=== PATIENT | female | born 1935 | race Caucasian/White ===

== ENCOUNTER 2018-04-10 12:15 | Outpatient (CLI) | payer MEDICARE | END 2018-04-10 12:16 | disposition home or self-care (01) | LOC: BICMRI 12:15 | PROVIDERS: ATTEND Family Medicine | DX: M51.16 Intervertebral disc disorders with radiculopathy, lumbar region (principal); M51.17 Intervertebral disc disorders with radiculopathy, lumbosacral region; M51.15 Intervertebral disc disorders with radiculopathy, thoracolumbar region; M48.061 Spinal stenosis, lumbar region without neurogenic claudication; M99.83 Other biomechanical lesions of lumbar region; M99.84 Other biomechanical lesions of sacral region | CPT/HCPCS: 72148 ==

== ENCOUNTER 2019-08-16 14:33 | Inpatient (IN) | payer MEDICARE ==
[~2019-08-16 14:33] MED LIST: Iopamidol-370 76% 500 ML 1 ML ONE
[2019-08-16 16:00] LABS: #Lymphocytes 1.7 thou/uL (1.20-3.40); #Monocytes 0.5 thou/uL (0.11-0.59); #Neutrophils 5.5 thou/uL (1.40-6.50); %Basophils 0.4 % (0.0-1.0); %Eosinophils 0.4 % (0.0-10.0); %Monocytes 6.7 % (0.0-10.0); %Neutrophils 70.6 % (42.0-75.0); Hemoglobin 13.2 g/dL (12.0-16.0); Mean Corpuscular HGB CONC 32.7 g/dL (32.0-36.0); Mean Corpuscular Hemoglobin 28.6 pg (27.0-31.0); Mean Corpuscular Volume 87.3 fL (78.0-98.0); Mean Platelet Volume 7.6 fL (7.4-10.4); Platelet Count 329 thou/uL (130-400); RBC Distribution Width 12.5 % (11.5-14.5); Red Blood Cell (RBC) Count 4.62 mill/uL (4.20-5.40); White Blood Cell (WBC) Count 7.8 thou/uL (4.8-10.8)
[2019-08-16 16:12] LABS: Bacteria/HPF 2+ HPF (None Seen); Bilirubin Negative (Negative); Blood, Urine Negative (Negative); Clarity Turbid (Clear); Glucose, Urine (Dipstick) Normal (Negative); Leukocyte 500 Leu/uL (Negative); Nitrite Negative (Negative); Protein, Urine (Dipstick) Negative (Neg-Trace); Urobilinogen Normal mg/dL (Less than 2); WBC/HPF 21-50 HPF (0-3); Yeast-Budding 1+ HPF (None Seen)
[2019-08-16 16:23] LABS: ALT (SGPT) 18 U/L (8-55); AST (SGOT) 26 U/L (5-34); Albumin 3.7 g/dL (3.4-4.8); Alkaline Phosphatase 105 U/L (40-110); Anion Gap 16 mmol/L (10-20); BUN (Urea Nitrogen) 13 mg/dL (9.8-20.1); Bilirubin, Total 0.6 mg/dL (0.2-1.2); Calc. Creatinine Clearance 0 mL/min (70-130); Calcium 9.3 mg/dL (7.8-10.44); Carbon Dioxide 15 mmol/L (23-31); Chloride 101 mmol/L (98-107); Estimated GFR-MDRD 66; Globulin 3.6 g/dL (2.4-3.5); Glucose 98 mg/dL (83-110); Magnesium 1.9 mg/dL (1.6-2.6); Potassium 4.2 mmol/L (3.5-5.1); Protein, Total 7.3 g/dL (6.0-8.3); Sodium 128 mmol/L (136-145)
[2019-08-16] MEDS ORDERED: Labetalol HCl 100 MG/20 ML VIAL ONE (16:49)
[2019-08-16] MEDS ORDERED: Meclizine HCl 25 MG TAB ONE (16:49)
--- NOTE | 2019-08-16 16:54 | CT ---
CT BRAIN NONCONTRAST: DATE: 08/16/2019 HISTORY: 84-year-old female with altered mental status, confusion, lightheadedness, and vertigo. FINDINGS: There is no evidence of acute intra-axial or extra-axial hemorrhage. There is no midline shift or any other mass effect. There is no extra-axial fluid collection. There is no evidence of obstructive hydrocephalus. Calvarium is intact. There is diffuse brain parenchymal volume loss. There are low att enuation areas in the white matter. These are nonspecific, but in a patient of this age, they are probably chronic ischemic white matter changes due to microvascular atherosclerosis. Tiny old lacunar infarctions in caudate nuclei and basal ganglia bilaterally. IMPRESSION: 1) No acute intracranial findings. 2) involutional changes and chronic ischemic white matter changes. 3) several tiny old lacunar infarctions in bilateral corpus striatum.
--- NOTE | 2019-08-16 17:02 | CT ---
CT ANGIOGRAM THORAX WITH CONTRAST: (CTA pulmonary angiogram) DATE: 08/16/2019 HISTORY: 84-year-old female with near syncope. TECHNIQUE: IV injection of iodinated contrast. Scan acquisition timing attempted to coincide with iodinated contrast bolus reaching maximal density in pulmonary arteries. 3-D MIP reconstructions. FINDINGS: Pulmonary thromboembolism: None. Lungs: No consolidation or edema. Pneumothorax: None. Pleural effusion: None. heart: No cardiomegaly. Thoracic aorta: No aneurysm. Not enough IV contrast to evaluate for dissection. Mediastinum and julio: No lymphadenopathy. IMPRESSION: No pulmonary thromboembolism.
[2019-08-16] MEDS ORDERED: Acetaminophen 325 MG TAB PO PRN (17:22)
--- NOTE | 2019-08-16 17:45 | RAD ---
EXAM: Portable chest PROVIDED CLINICAL HISTORY: Chest pain COMPARISON: None FINDINGS: Cardiac and mediastinal silhouette is within normal limits. No focal consolidation, pleural fluid or pneumothorax evident. IMPRESSION: No evidence for an acute cardiopulmonary process.
[2019-08-16] MEDS ORDERED: Aspirin 325 MG TAB PO SCH (18:15)
--- NOTE | 2019-08-16 18:36 | PDOC.EVN ---
Event Note - Event Note Event Note: [id number] HP
[2019-08-16 21:13] VITALS: BMI 27.3
--- NOTE | 2019-08-16 21:30 | HP ---
CHIEF COMPLAINT: Dizziness and weakness. HISTORY OF PRESENT ILLNESS: Ms. Herzog is an 84-year-old female with past medical history of CVA, presented to the emergency room with dizziness, lightheadedness, and weakness. Symptoms started yesterday. It got worse today. The patient also reports confusion. She felt that the room was spinning. Denies nausea, vomiting, or diarrhea. Workup in the emergency room including CT of the brain, no acute finding. CT of the chest, no acute finding. The patient was found to be hyponatremic with a sodium of 128. The patient also was found to have urinary tract infection. The patient is being admitted to hospital for further management. PAST MEDICAL HISTORY: 1. CVA. 2. Hypertension. 3. Hyperlipidemia. 4. Colon cancer. PAST SURGICAL HISTORY: 1. Resection of colon cancer. 2. Colostomy. 3. Reversal of colostomy. SOCIAL HISTORY: Denies smoking, alcohol drinking, or drug abuse. FAMILY HISTORY: Reviewed and noncontributory. HOME MEDICATIONS: Please see home medication reconciliation form for updated medications. ALLERGIES: ALLERGIC TO PENICILLIN. REVIEW OF SYSTEMS: Review of 14 systems negative except what is mentioned in the history of present illness. PHYSICAL EXAMINATION: GENERAL: The patient is awake, alert, does not appear to be in acute distress. VITAL SIGNS: Blood pressure initially was 211/78. Latest blood pressure is 169/93. The patient was given 20 mg of IV labetalol in the ED. Pulse is 77, respiratory rate is 22, and temperature 98.1. HEAD AND NECK: Normocephalic, atraumatic. Neck is supple. No JVD. CHEST: Fair bilateral air entry. HEART: S1 and S2, regular. ABDOMEN: Soft, nontender. Bowel sounds present. NEUROLOGIC: Awake, alert, and oriented x3. Moving all extremities. PSYCHIATRIC: Unable to assess. EXTREMITIES: No clubbing, no cyanosis. MUSCULOSKELETAL: No back tenderness. No joint tenderness. GENITOURINARY: No suprapubic tenderness. No flank tenderness. IMAGING DATA: CTA of the chest, no pulmonary thromboembolism. CT of the brain, no acute intracranial findings, several tiny old lacunar infarctions in bilateral corpus striatum. LABORATORY DATA: Sodium is 128. Urine culture is positive for wbc's and bacteria. ASSESSMENT: 1. Dizziness and lightheadedness. 2. Hyponatremia. 3. Hypertensive urgency. 4. Acute urinary tract infection. 5. Hyperlipidemia. 6. History of colon cancer. PLAN: 1. Admit. 2. Telemetry monitoring. 3. Aspirin. 4. Frequent neuro checks. 5. MRI of the brain. 6. Consult Neurology in a.m. for evaluation and further recommendations. 7. IV fluids with normal saline. 8. Monitor electrolytes and sodium. 9. Septic workup including urine cultures. 10. IV ceftriaxone, awaiting culture results. 11. Reconcile home medications. 12. DVT prophylaxis as appropriate. 13. Expected length of stay, 2 midnights or more. Job ID: [id number]
[2019-08-16] MEDS: Sodium Chloride 0.9% 1,000 ML IV SCH (21:59)
[2019-08-16] MEDS: cefTRIAXone\\ROCEPHIN 1 GM in Sodium Chloride 0.9% 100 ML IVPB SCH (22:05)
[2019-08-16] MEDS: Heparin 5,000 UNITS/ML VIAL SC SCH (22:11)
[2019-08-16] MEDS: Famotidine 20 MG TAB PO SCH (22:11)
[2019-08-16] MEDS ORDERED: hydrALAZINE 20 MG/ML VIAL SLOW IVP PRN (22:49)
[2019-08-16] MEDS ORDERED: Lisinopril 20 MG TAB PO SCH (23:00)
[2019-08-17 05:10] LABS: #Eosinphils 0.1 thou/uL (0.0-0.7); #Lymphocytes 2.1 thou/uL (1.20-3.40); #Monocytes 0.6 thou/uL (0.11-0.59); #Neutrophils 4.4 thou/uL (1.40-6.50); %Basophils 0.4 % (0.0-1.0); %Eosinophils 0.9 % (0.0-10.0); %Lymphocytes 29.1 % (21.0-51.0); %Monocytes 8.7 % (0.0-10.0); %Neutrophils 60.9 % (42.0-75.0); Hemoglobin 11.6 g/dL (12.0-16.0); Mean Corpuscular HGB CONC 33.3 g/dL (32.0-36.0); Mean Corpuscular Hemoglobin 29.5 pg (27.0-31.0); Mean Corpuscular Volume 88.4 fL (78.0-98.0); Mean Platelet Volume 7.3 fL (7.4-10.4); Platelet Count 294 thou/uL (130-400); RBC Distribution Width 12.6 % (11.5-14.5); Red Blood Cell (RBC) Count 3.93 mill/uL (4.20-5.40); White Blood Cell (WBC) Count 7.2 thou/uL (4.8-10.8)
[2019-08-17 05:22] LABS: Anion Gap 13 mmol/L (10-20); BUN (Urea Nitrogen) 10 mg/dL (9.8-20.1); Calc. Creatinine Clearance 50 mL/min (70-130); Calcium 8.8 mg/dL (7.8-10.44); Carbon Dioxide 20 mmol/L (23-31); Cardiac Risk 3.2 (Less than 4.5); Chloride 106 mmol/L (98-107); Cholesterol 121 mg/dl (< 200 Desired); Estimated GFR-MDRD 66; Glucose 91 mg/dL (83-110); HDL Cholesterol 38 mg/dL (>60 Neg Risk); LDL Cholesterol, Calculated 65 mg/dL; Potassium 3.7 mmol/L (3.5-5.1); Sodium 135 mmol/L (136-145); Triglycerides 88 mg/dL (Less than 150)
[2019-08-17] MEDS: Sodium Chloride 0.9% 1,000 ML IV SCH ×2 (08:15→13:34)
[2019-08-17] MEDS ORDERED: Prevnar 13-Val Conj/PF 0.5 ML SYRINGE IM ONE (09:00)
--- NOTE | 2019-08-17 09:26 | CON ---
DATE OF CONSULTATION: 08/17/2019 CONSULTING PHYSICIAN: Hospitalist Service. IMPRESSION: 1. Acute vertigo that apparently is a recurrent problem. 2. Reported history of a frontal stroke diagnosed 2 weeks ago. 3. Hypertension. 4. Hyperlipidemia. 5. Colon cancer. PLAN: MRI of the brain to determine whether this was an ischemic event versus an inner ear event. HISTORY OF PRESENT ILLNESS: Ms. Herzog is an 84-year-old white female, who reports having episodic vertigo for quite some time now. She was hospitalized at [facility] 2 weeks ago for a stroke workup. She reports that there was evidence of an acute ischemic event in the frontal region, which the accuracy of this information is suspect. She was hospitalized for about 4 days and discharged. She had a recurrent dizziness yesterday. She reports the world was spinning and it was not associated with any double vision, headache, nausea, vomiting, lateralized weakness or numbness. She decided to come back to the hospital for evaluation. She had a CT of the brain last night, which showed chronic white matter ischemic changes. She is feeling better today. She reports the symptoms lasted at least an hour. PAST MEDICAL HISTORY: As listed above. ALLERGIES: PENICILLIN. SOCIAL HISTORY: No tobacco or alcohol use. FAMILY HISTORY: Noncontributory. REVIEW OF SYSTEMS: Ten-system review of systems is otherwise negative. PHYSICAL EXAMINATION: GENERAL: She is a healthy-appearing elderly lady, sitting up in bed, in no acute distress. VITAL SIGNS: Initially showed a blood pressure of 211/78, which diminished somewhat with monitoring, pulse rate of 77, and respirations of 22. She is afebrile. HEENT: Pupils are equal and reactive. Conjunctivae are clear. Oropharynx clear. NECK: Supple. EXTREMITIES: No cyanosis or edema. NEUROLOGIC: She is alert and appropriate. Her speech is fluent and clear. Cranial nerves are intact. Motor exam showed equal strength. She could sit at the bedside without difficulty. Sensation was intact bilaterally. LABORATORY STUDIES: Only notable for probable urinary tract infection. SUMMARY: This is an 84-year-old woman, who reports episodic dizziness, which has been a recurrent problem on several occasions. She has nothing focal on exam. I suspect this is more likely to be vestibular in origin. We will review her MRI scan when it is available. Job ID: [id number]
--- NOTE | 2019-08-17 10:33 | MRI ---
MRI BRAIN WITHOUT CONTRAST: HISTORY: History TIA, weakness and dizziness CORRELATION: CT scan from 08/16/2019. FINDINGS: No restricted diffusion is seen. Cortical atrophy is present. There are multiple foci of T2 prolongat ion in the periventricular white matter, consistent with chronic small vessel ischemic disease. The ventricular size is appropriate and the basilar cisterns are patent. No evidence of acute infarct, hemorrhage, midline shift or abnormal extra-axial fluid collections is seen. This a tiny focus of hypointensity in the left cerebellar hemisphere on the gradient echo sequences indicating hemosiderin deposition. IMPRESSION: No evidence of acute intracranial process.
[2019-08-17] MEDS: Famotidine 20 MG TAB PO SCH ×2 (11:04→21:59)
[2019-08-17] MEDS: Lisinopril 20 MG TAB PO SCH (11:04)
[2019-08-17] MEDS: Aspirin 325 mg Enteric Coated Tablet PO SCH (11:04)
[2019-08-17] MEDS: Heparin 5,000 UNITS/ML VIAL SC SCH ×2 (11:05→21:59)
--- NOTE | 2019-08-17 11:18 | PDOC.EVN ---
Event Note - Event Note Event Note: [id number] progress
--- NOTE | 2019-08-17 11:39 | PRG ---
DATE OF SERVICE: 08/17/2019 SUBJECTIVE: The patient is being followed for hypertensive urgency, hyponatremia, acute urinary tract infection, dizziness, and lightheadedness. The patient is still feeling weak and dizzy and lightheaded. The patient was started on IV antibiotic for urinary tract infection. Stroke workup including MRI of the brain is underway. OBJECTIVE: GENERAL: The patient is awake, alert, does not appear to be in acute distress. VITAL SIGNS: Blood pressure 143/70, temperature 97.8, respiratory rate is 16, and pulse oximetry 96% on room air. HEAD AND NECK: Normocephalic, atraumatic. Neck is supple. No JVD. CHEST: Fair bilateral air entry. HEART: S1 and S2, regular. ABDOMEN: Soft, nontender. Bowel sounds present. NEURO: The patient is awake, alert, oriented. Moving all extremities. PSYCH: Unable to assess. EXTREMITIES: No clubbing. No cyanosis. MUSCULOSKELETAL: No back tenderness. No joint tenderness. GENITOURINARY: No suprapubic tenderness. No flank tenderness. LABORATORY DATA: Today; sodium 135, potassium 3.7, BUN 10, and creatinine 0.8. WBC 7.2, hemoglobin 11.6, and platelets 294. IMAGING DATA: MRI of the brain pending. ASSESSMENT: 1. Acute hyponatremia, improving. 2. Hypertensive urgency. Blood pressure better controlled. 3. Acute urinary tract infection. Continue with IV antibiotics. 4. Dizziness and lightheadedness, awaiting MRI of the brain, Neurology consulted. 5. Hyperlipidemia. 6. History of colon cancer. PLAN: 1. Continue with current inpatient setting. 2. Continue with IV antibiotic, follow MRI of the brain, appreciate. 3. Appreciate Neurology input, DVT prophylaxis, as appropriate. 4. Possible discharge in a.m. if the patient's condition is stable and, continue to improve, and further workup negative. Job ID: [id number]
[2019-08-17] MEDS: cefTRIAXone\\ROCEPHIN 1 GM in Sodium Chloride 0.9% 100 ML IVPB SCH (18:31)
[2019-08-18] MEDS ORDERED: Metoprolol Tartrate 25 MG TAB PO SCH (09:00)
[2019-08-18] MEDS: Heparin 5,000 UNITS/ML VIAL SC SCH (09:55)
[2019-08-18] MEDS: Famotidine 20 MG TAB PO SCH (09:56)
[2019-08-18] MEDS: Lisinopril 20 MG TAB PO SCH (09:56)
[2019-08-18] MEDS: Aspirin 325 mg Enteric Coated Tablet PO SCH (09:56)
[2019-08-18] MEDS: Sodium Chloride 0.9% 1,000 ML IV SCH (11:30)
[2019-08-18 12:28] VITALS: BP 145/78; TEMP 98.4
--- NOTE | 2019-08-18 16:26 | DIS ---
DATE OF ADMISSION: 08/16/2019 DATE OF DISCHARGE: 08/18/2019 DISCHARGE DISPOSITION: Home. FOLLOWUP: 1. Follow up with primary care physician, Tena Sotomayor, in 3 to 4 days. 2. Follow up with Neurology, Dr. Pandey, in 2 to 3 weeks. CODE STATUS: Do not resuscitate. ALLERGIES: THE PATIENT IS ALLERGIC TO PENICILLIN. DISCHARGE MEDICATIONS: 1. Ciprofloxacin 250 mg twice daily for next 2 more days. 2. All other home medications were left unchanged. BRIEF HOSPITAL COURSE: The patient is an 84-year-old female with recent CVA at [facility], presented to the hospital with dizziness and vertigo. Please refer to the history and physical for further details. The patient was admitted to the Stroke Unit with a diagnosis of suspected CVA. Stroke workup was essentially negative. CT scan of the brain and MRI were negative for acute CVA. She was found to have sodium of 128 on admission that improved to 135 after IV hydration. She was evaluated by Neurology, Dr. Pandey, as well. No changes in her antiplatelet regimen were made. She appears stable for discharge. long-term facility was offered; however, the patient declined. The Home Health Care will be resumed. FINAL DIAGNOSES: 1. Generalized weakness with dizziness and vertigo, probably secondary to hyponatremia. 2. Chronic kidney disease, stage 2. 3. Recent cerebrovascular accident on aspirin. 4. Do not resuscitate. 5. Elevated D-dimer with negative CT angiogram of the chest. 6. Hypertension. 7. Hyperlipidemia. 8. History of colon cancer. 9. Urinary tract infection. Please note that urine cultures were not sent on admission. 10. Moderate protein-calorie malnutrition. 11. Metabolic acidosis on admission, resolved. PLAN: Plan was discussed with the patient and her family in detail, they stated understanding. Job ID: [id number]
[2019-08-18] MEDS ORDERED: Atorvastatin Calcium 20 MG TAB PO SCH (21:00)
== END 2019-08-18 16:02 | disposition home health service (06) | DRG 690 ==
LOC: ERS 14:33 → 2SE 17:16
PROVIDERS: ADMIT Internal Medicine; ATTEND Internal Medicine
DX: N39.0 Urinary tract infection, site not specified (principal); E87.1 Hypo-osmolality and hyponatremia; E44.0 Moderate protein-calorie malnutrition; E87.2 Acidosis; Z66 Do not resuscitate; E78.5 Hyperlipidemia, unspecified; I16.0 Hypertensive urgency; E78.00 Pure hypercholesterolemia, unspecified; N18.2 Chronic kidney disease, stage 2 (mild); I12.9 Hypertensive chronic kidney disease with stage 1 through stage 4 chronic kidney disease, or unspecified chronic kidney disease; Z86.73 Personal history of transient ischemic attack (TIA), and cerebral infarction without residual deficits; Z85.038 Personal history of other malignant neoplasm of large intestine; Z93.3 Colostomy status; Z88.0 Allergy status to penicillin; Z68.27 Body mass index [BMI] 27.0-27.9, adult; Z79.899 Other long term (current) drug therapy
CPT/HCPCS: 36415; 70450; 70551; 71045; 71275; 80048; 80053; 80061; 81003; 81015; 83735; 83880; 83930; 84484; 85025; 85379; 90471; 90670; 93005; 96365; 96366; 96375; G0009; J0696; J1644; J1956; J3490; J8597; Q9967